=== PATIENT | male | born 1975 | race Caucasian/White ===

== ENCOUNTER → 2018-05-31 14:49 | Outpatient (CLI) | payer OTHER, SELFPAY | PROVIDERS: Family Provider Family Medicine; PCP Family Medicine; Visit Provider Family Medicine | DX: M79.672 Pain in left foot (principal) | CPT/HCPCS: 73630 ==

== ENCOUNTER → 2020-08-12 | Outpatient (CLI) | payer OTHER, SELFPAY ==
[2015-03-26 10:28] VITALS: BMI 33.3
== END | disposition home or self-care (01) ==
LOC: LABSPEC 16:22
PROVIDERS: PCP Family Medicine; Referring Provider Family Medicine; Visit Provider Nurse Practitioner Adult Health
DX: U07.1 COVID-19 (principal)
CPT/HCPCS: 87633; 87635; U0003

== ENCOUNTER → 2021-05-07 09:41 | Outpatient (CLI) | payer OTHER, SELFPAY ==
[2015-03-26 10:28] VITALS: BMI 33.3
--- NOTE | 2021-05-07 09:50 | RAD_ITS ---
STUDY: X-RAY - LEFT FOOT CLINICAL: Male, 45 years old. Left foot pain. TECHNIQUE: 3 view(s) of the foot. COMPARISON: 05/31/2018. FINDINGS: Mild arthrosis of the tibiotalar joint, unchanged. Small inferior calcaneal spur. Normal visualized subtalar, talonavicular, calcaneocuboid, tarsal and tarsometatarsal articulations. Normal metatarsi. Mild loss of articular cartilage of the MTP and IP joints unchanged. The soft tissue structures are unremarkable. RAD/Foot min 3 Views IMPRESSION: Stable osteoarthritic changes. Small calcaneal spur. No acute abnormality, erosive changes or periostitis. Electronically Signed: Harris Cleaning MD at 10:28 EDT , Service support ,
== END ==
PROVIDERS: PCP Family Medicine; Referring Provider Family Medicine; Visit Provider Family Medicine
DX: M79.672 Pain in left foot (principal)
CPT/HCPCS: 73630

== ENCOUNTER 2021-12-29 11:58 | Emergency (ER) | payer OTHER, SELFPAY ==
[2021-12-29 11:59] VITALS: BP 152/97; PULSE 88; RESP 16; TEMP 37.2; O2SAT 96; BMI 33.3
[2021-12-29 12:09] VITALS: PULSE 82; O2SAT 97
--- NOTE | 2021-12-29 12:24 | EKG12_ITS ---
Test Reason : CP Blood Pressure : / mmHG Vent. Rate : 082 BPM Atrial Rate : 082 BPM P-R Int : 144 ms QRS Dur : 086 ms QT Int : 364 ms P-R-T Axes : 022 -09 019 degrees QTc Int : 425 ms Normal sinus rhythm Normal ECG Confirmed by LUIS HELM MD ([id number]), department editor JEFFERY GAONA ([id number]) on 12/30/2021 2:08:27 PM Referred By: WALLACE Confirmed By:LUIS HELM MD
[2021-12-29 12:35] LABS: Absolute Lymphocyte Count 1.68 X10^3/uL (0.83-4.51); Absolute Neutrophil Count 6.9 X10^3/uL (2.0-7.7); Basophil# 0.04 X10^3/uL; Basophil% 0.4 % (0-1); Eosinophil# 0.14 X10^3/uL; Eosinophils% 1.5 % (0-5); Hematocrit 49.3 % (40-54); Hemoglobin 17.3 g/dL (13.0-16.5); Lymphocyte # 1.68 X10^3/ul (0.83-4.51); Lymphocyte % 17.6 % (19-41); Mean Corp Hgb Conc 35.1 g/dL (32-36); Mean Corpuscular Hgb 30.1 pg (27.0-32.0); Mean Corpuscular Volume 85.9 fL (80-94); Mean Platelet Vol. 8.6 fl (6.2-12.0); Monocyte# 0.77 X10^3/uL; Monocyte% 8.1 % (0-10); NRBC Flagged by Analyzer 0 % (0-5); Neutrophil # 6.85 X10^3/uL (2.7-7.7); Neutrophil % 71.9 % (47-70); Platelet Count 274 K/mm3 (150-450); RBC Distribution Width CV 11.9 % (11.6-14.6); RBC Distribution Width SD 37.1 fl (35.1-43.9); Red Blood Count 5.74 M/mm3 (4.6-6.2); White Blood Count 9.5 K/mm3 (4.4-11.0)
--- NOTE | 2021-12-29 12:35 | RAD_ITS ---
STUDY: X-RAY CHEST REASON FOR EXAM: Male, 46 years old. Chest pain TECHNIQUE: Single AP portable view of the chest. COMPARISON: None. FINDINGS: EKG electrodes are seen. The lungs are clear and expanded. There is no demonstrated pleural abnormality. Normal size heart. Normal mediastinum and isidro. Normal visualized pulmonary arteries. Normal visualized aortic arch and descending thoracic aorta. Normal visualized thoracic spine. Normal visualized ribs, clavicles, and shoulders. There is no demonstrated abnormality of the visualized soft tissue structures of the upper abdomen. RAD/Chest 1 View (Portable) IMPRESSION: Normal x-ray examination of the chest. Electronically Signed: Harsh Muhammad MD at 12:55 EDT ,
[2021-12-29 12:51] LABS: Anion Gap 5 (5-15); BUN 13 mg/dL (7-18); BUN/Creat Ratio 13.4 RATIO (10-20); Calcium,Total 9.3 mg/dL (8.5-10.1); Chloride 106 mmol/L (98-107); Creatinine, Serum 0.97 mg/dL (0.70-1.30); EST Glomerular Filtration Rate 89 mL/min (>60); Est Glom Filt Rate - Afr Amer 108 mL/min (>60); Estimated Creatinine Clearance 112.99 ml/min; Glucose 95 mg/dL (74-106); Potassium 3.8 mmol/L (3.5-5.1); Sodium Level 137 mmol/L (136-145); Troponin-I HS (w/2H Reflex) < 3 pg/mL (3.0-78.0)
--- NOTE | 2021-12-29 12:56 | EDS_ITS ---
HPI History of Present Illness Chief Complaint: Chest Pain Narrative Narrative: 46-year-old male presenting with chest pain. This started on Tuesday. The pain has been intermittent. He states the pain radiates to his left arm periodically. He states he did not sleep last night because he was worried about his chest pain. He has no cardiac history. No history of DVT/PE. CVD Risk Factors: Negative for Hypertension, Diabetes, Hypercholesterolemia, Family History 1' </=55 and Smoking PE Risk Factors: Negative for Recent Travel/Surgery, Recent Immobilization, Prior DVT or PE, Cancer and OCP + Smoking + >/=35 PFSH PFSH Home Medications ondansetron HCl 8 mg PO Q8H PRN PRN #20 tablet 03/26/15 [Rx Last Taken Unknown] oxycodone-acetaminophen 1 - 2 tab PO Q6H PRN PRN #60 tab 03/26/15 [Rx Last Taken Unknown] Allergy/AdvReac Type Severity Reaction Status Date / Time Penicillins AdvReac Rash Verified 12/29/21 11:59 Social History Smoking Status: Never smoker ROS ROS ED Constitutional Constitutional ED: Denies chills or fever(s) Eyes Eyes: Denies blurry vision or change in vision ENT ENT ED: Denies rhinorrhea or sore throat Cardiovascular Cardiovascular: Reports as per HPI Respiratory/Chest Respiratory/Chest: Denies cough or dyspnea Gastrointestinal Gastrointestinal: Denies abdominal pain, nausea or vomiting Genitourinary Genitourinary ED: Denies dysuria or hematuria Musculoskeletal Musculoskeletal: Denies arthralgias or myalgias Integumentary Denies rash Neurologic Neurologic: Denies headache(s) or weakness Psychiatric Psychiatric: Denies anxiety or depression EXAM Physical Exam Const Vital Signs: 12/29/21 11:59 12/29/21 12:09 12/29/21 12:15 Temperature 98.9 F Temperature Source Temporal Pulse Rate 88 82 Respiratory Rate 16 Respiratory Effort Normal Non-Labored Blood Pressure 152/97 H Blood Pressure Mean 115 Pulse Ox 96 97 Oxygen Delivery Method Room Air Room Air 12/29/21 12:33 12/29/21 14:35 Temperature Temperature Source Pulse Rate 88 Respiratory Rate 15 Respiratory Effort Blood Pressure 108/73 Blood Pressure Mean 84 Pulse Ox 95 Oxygen Delivery Method Nasal Cannula Room Air Positive well nourished General Appearance ED: NAD; Negative for pallor HEENT Reports moist mucous membranes atraumatic Eyes PERRL and EOMs intact bilaterally General Eye ED: Negative for pale conjunctiva or scleral icterus Resp normal respiratory effort Effort and Inspection: respiratory distress Cardio regular rate and regular rhythm Extremity normal to inspection General Extremety ED: Yes tenderness Neuro oriented x3 Sensorium / Orientation: awake and alert Psych mental status grossly normal Skin General Skin Exam: Negative for jaundice or pallor Heart Score History: Slightly/Non-Suspicious ECG: Normal Age: </= 45 years Risk Factors: No Risk Factors Troponin: </= Normal Limit Score: 0 MDM MDM MDM Narrative Medical decision making narrative: Patient presented with chest pain. No cardiac risk factors or history. No DVT/patient factors or history. EKG obtained on arrival shows a normal sinus rhythm at 82 beats minute without sign of ischemic change or dysrhythmia. Chest x-ray my interpretation shows no acute cardiopulmonary process and the radiologist does agree. CBC and BMP unremarkable. High-sensitivity troponin is less than 3 and at 2 hours the result is less than 3. Heart score of 0 I believe this rules out ACS. PERC negative. At this point I feel the patient is safe to be discharged home. Patient to return precautions, otherwise he will follow-up with his PCP. Impression: 1. Chest pain noncardiac Lab Data Labs: Laboratory Results - last 24 hr 12/29/21 12/29/21 12/29/21 12:12 12:12 14:15 WBC 9.5 RBC 5.74 Hgb 17.3 H Hct 49.3 MCV 85.9 MCH 30.1 MCHC 35.1 RDW Std Deviation 37.1 RDW Coeff of [place] 11.9 Plt Count 274 MPV 8.6 Immature Gran % (Auto) 0.500 Neut % (Auto) 71.9 H Lymph % (Auto) 17.6 L [place] % (Auto) 8.1 Eos % (Auto) 1.5 Baso % (Auto) 0.4 Absolute Neuts (auto) 6.9 Absolute Lymphs (auto) 1.68 Nucleated RBC % 0 Sodium 137 Potassium 3.8 Chloride 106 Carbon Dioxide 26.0 Anion Gap 5 BUN 13 Creatinine 0.97 Estim Creat Clear Calc 112.99 Est GFR (MDRD) Af Amer 108 Est GFR (MDRD) Non-Af 89 BUN/Creatinine Ratio 13.4 Glucose 95 Calcium 9.3 Troponin I High Sens < 3 L < 3 L Radiography Diagnostic Testing: Clinical Impression(s) from Imaging Studies Chest X-Ray 12/29/21 12:35 IMPRESSION: Normal x-ray examination of the chest. Electronically Signed: Harsh Muhammad MD at 12:55 EDT , Discharge Plan Triage Chief Complaint: Chest Pain ED Provider: Bradley Carcamo Dx/Rx/DC Orders Prescriptions: No Action ondansetron HCl 8 MG tablet 8 mg PO Q8H PRN PRN (Reason: Nausea) Qty: 20 RF: 0 oxycodone-acetaminophen 1 TABLET tablet 1 - 2 tab PO Q6H PRN PRN (Reason: Pain) Qty: 60 RF: 0 Primary Care Provider: Keyur Recinos
[2021-12-29 14:32] LABS: Reflex Troponin-HS? (from REC) Y
[2021-12-29 14:35] VITALS: BP 108/73; PULSE 88; RESP 15; O2SAT 95
[2021-12-29 14:39] LABS: Troponin-I HS < 3 pg/mL (3.0-78.0)
[2021-12-29 15:08] VITALS: BP 108/73; PULSE 88; RESP 18
== END 2021-12-29 15:09 | disposition home or self-care (01) ==
PROVIDERS: Emergency Provider Student in an Organized Health Care Education/Training Program; PCP Family Medicine; Visit Provider Student in an Organized Health Care Education/Training Program
DX: R07.89 Other chest pain (principal)
CPT/HCPCS: 71045; 80048; 84484; 85025; 93005; 99283; A4216